=== PATIENT | female | born 1955 | race African-American/Black ===

== ENCOUNTER 2024-09-23 13:12 | Outpatient (CLI) | payer MEDICARE | END 2024-09-23 13:13 | disposition home or self-care (01) | LOC: CSHMAMMO 13:12 | PROVIDERS: ATTEND Family Medicine | DX: M81.0 Age-related osteoporosis without current pathological fracture (principal); M85.88 Other specified disorders of bone density and structure, other site | CPT/HCPCS: 77080 ==